=== PATIENT | male | born 2000 | race African-American/Black ===

== ENCOUNTER 2021-01-28 12:33 | Emergency (ER) | payer OTHER ==
[2021-01-28] MEDS ORDERED: DEXAMETHASONE SOD PHOSPHATE 10 MG/ML 1 ML VIAL IVP STA (12:49)
--- NOTE | 2021-01-28 12:58 | ED ---
General Adult HPI - General Chief complaint: Shortness of Breath Stated complaint: Allergic reaction Time Seen by Provider: 01/28/21 12:36 Source: patient, RN notes reviewed Mode of arrival: ambulatory Limitations: no limitations - History of Present Illness Initial comments: This a 20-year-old male presents emergency Department chief complaints of diffi culty swallowing. Patient states that symptoms started after he started drinking when he states was a monster he does admit that he also day, smokes marijuana and has been drinking alcohol. Patient was given Benadryl IV by EMS prior arrival. Mom states there is very anxious at this time patient states symptoms started prior to a pain and smoking marijuana. Patient has been seen ENT that she's been complaining of throat issues. - Related Data Allergies Allergy/AdvReac Type Severity Reaction Status Date / Time No Known Allergies Allergy Verified 01/28/21 12:49 Review of Systems ROS Statement: Those systems with pertinent positive or pertinent negative responses have been documented in the HPI. ROS Other: All systems not noted in ROS Statement are negative. Past Medical History Past Medical History: No Reported History History of Any Multi-Drug Resistant Organisms: None Reported Past Surgical History: No Surgical Hx Reported Past Psychological History: No Psychological Hx Reported Smoking Status: Current some day smoker, Vaper Past Alcohol Use History: Occasional Past Drug Use History: Marijuana General Exam Limitations: no limitations General appearance: alert, in no apparent distress Head exam: Present: atraumatic, normocephalic, normal inspection Eye exam: Present: normal appearance, PERRL, EOMI. Absent: scleral icterus, conjunctival injection, periorbital swelling ENT exam: Present: normal exam, normal oropharynx, mucous membranes moist, TM's normal bilaterally Neck exam: Present: normal inspection, full ROM. Absent: tenderness, meningismus, lymphadenopathy Respiratory exam: Present: normal lung sounds bilaterally. Absent: respiratory distress, wheezes, rales, rhonchi, stridor Cardiovascular Exam: Present: regular rate, normal rhythm, normal heart sounds. Absent: systolic murmur, diastolic murmur, rubs, gallop, clicks GI/Abdominal exam: Present: soft, normal bowel sounds. Absent: distended, tenderness, guarding, rebound, rigid Neurological exam: Present: alert, oriented X3, CN II-XII intact Skin exam: Present: warm, dry, intact, normal color. Absent: rash Course Vital Signs 01/28/21 12:41 Temperature 99 F Pulse Rate 71 Respiratory 18 Rate Blood Pressure 174/83 O2 Sat by Pulse 99 Oximetry Medical Decision Making - Medical Decision Making X-ray are unremarkable. Patient advised to stop smoking, using drugs and alcohol. Patient's been having ongoing throat issues. No difficulty swallowing no respiratory issues patient will follow-up for recheck and return for any worsening changes symptoms.I counseled the patient for smoking cessation for greater than 3 minutes Disposition Clinical Impression: Throat irritation Disposition: HOME SELF-CARE Condition: Stable Instructions (If sedation given, give patient instructions): Pharyngitis (ED) Additional Instructions: Please return to the Emergency Department if symptoms worsen or any other concerns. Is patient prescribed a controlled substance at d/c from ED?: No Referrals: Job Dunlap MD [Primary Care Provider] - 1-2 days Time of Disposition: 14:04
--- NOTE | 2021-01-28 13:32 | XR ---
EXAMINATION TYPE: XR chest 2V DATE OF EXAM: 01/28/2021 COMPARISON: NONE HISTORY: SOB. TECHNIQUE: Frontal and lateral views of the chest are obtained. FINDINGS: There is no focal air space opacity, pleural effusion, or pneumothorax seen. The cardiac silhouette size is within normal limits. The osseous structures are intact. IMPRESSION: No acute process.
--- NOTE | 2021-01-28 13:34 | XR ---
EXAMINATION TYPE: XR soft tissue neck DATE OF EXAM: 01/28/2021 COMPARISON: NONE HISTORY: Pain. Feels like throat is closing. TECHNIQUE: 2 view soft tissue neck. FINDINGS: No suspicious prevertebral soft tissue swelling. Region of epiglottis and vallecula appears within normal limits on the lateral view. No suspicious narrowing of the subglottic airway. Visualiz ed cervical spine unremarkable. IMPRESSION: Unremarkable study. .
[2021-01-28 14:40] VITALS: BP 133/82; PULSE 62; RESP 18; TEMP 98.6
== END 2021-01-28 14:39 | disposition home or self-care (01) ==
LOC: EC 12:33
DX: J39.2 Other diseases of pharynx (principal); F17.290 Nicotine dependence, other tobacco product, uncomplicated; F12.90 Cannabis use, unspecified, uncomplicated
CPT/HCPCS: 70360; 71046; 99284; 96374; J1100